=== PATIENT | male | born 1940 ===

== ENCOUNTER 2017-11-29 08:12 | Outpatient (CLI) | payer MEDICARE, BC ==
--- NOTE | 2017-11-29 10:27 | CT ---
CT OF THE CHEST WITHOUT CONTRAST CT OF THE ABDOMEN AND PELVIS WITHOUT CONTRAST: Comparison: None. History: Chronic kidney disease, stage III. Too much iron in the blood. Technique: 1. Multiple contiguous axial images were obtained in a CT of the chest without contrast. Coronal refo rmats were performed. 2. Multiple contiguous axial images were obtained in a CT of the abdomen and pelvis without contrast. Coronal reformats were performed. PO contrast was administered. FINDINGS: CT CHEST: The heart is normal in size. No hilar or mediastinal lymphadenopathy are seen, but evaluation is limi maribel without IV contrast. No suspicious pulmonary nodule is seen. No focal infiltrates are seen in the lungs. No pneumothorax o r pleural effusion are seen. Degenerative changes are seen in the spine. The chest wall soft tissues are unremarkable. CT ABDOMEN/PELVIS: There are bilateral extrarenal pelvises, left more prominent than right. The liver, gallbladder, adre nal glands, spleen, and pancreas are unremarkable. No free air, free fluid, or stranding changes are seen in the abdomen or pelvis. There are scattered diverticula in the colon. The small bowel is unremarkable. No abdominal or pelvic lymphadenopathy are seen. Atherosclerotic calcifications are seen in the aorta. Degenerative changes are seen in the spine. The visualized inferior thorax is unremarkable. IMPRESSION: 1. No evidence of acute intrathoracic abnormality. 2. No evidence of acute intraabdominal/pelvic abnormality. 3. Diverticulosis. POS: [facility]
--- NOTE | 2017-11-29 10:37 | CT ---
CT OF THE SINUSES WITHOUT CONTRAST: COMPARISON: None. HISTORY: Chronic sinus drainage for a year. TECHNIQUE: Multiple contiguous axial images were obtained in a CT of the sinuses without contrast. Sagittal and coronal reformats were performed. FINDINGS: There is complete opacification of the right maxillary sinus. The density of the bones surrounding t he right maxillary sinus are thickened and sclerotic consistent with chronic right maxillary sinus di sease. The left maxillary sinus, sphenoid sinuses, and left frontal sinus are well aerated. There i s also opacification of the right frontal sinus and some of the anterior right ethmoid air cells. The mastoid air cells are well aerated. The visualized intracranial structures are unremarkable. Th e globes and retrobulbar soft tissues are unremarkable. IMPRESSION: Right-sided sinus disease involving the frontal, maxillary, and ethmoid sinuses. The maxillary sinus disease appears chronic as there is sclerotic change of the surrounding maxillary sinus shepard. POS: [facility]
== END 2017-11-29 08:13 | disposition home or self-care (01) ==
LOC: RAD-BREN 08:12
PROVIDERS: ATTEND Internal Medicine Hematology & Oncology
DX: N18.3 Chronic kidney disease, stage 3 (moderate) (principal); J32.0 Chronic maxillary sinusitis; J32.4 Chronic pansinusitis; K57.90 Diverticulosis of intestine, part unspecified, without perforation or abscess without bleeding
CPT/HCPCS: 71250; 74177